=== PATIENT | female | born 1940 | race Caucasian/White ===

== ENCOUNTER 2019-08-04 12:30 | Outpatient (RCR) | payer MEDICARE, OTHER, SELFPAY ==
--- NOTE | 2019-06-25 11:40 | PTOPEVAL ---
INITIAL PHYSICAL THERAPY EVALUATION and PLAN OF CARE Thank you for referring Laurel to [facility]. Please review, sign, date and return this plan of care MAXINE. She will be seen in PT 2x/wk x 6 wks. I agree with and certify that the following plan of care is medically necessary. 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 Hx Other Cardiac Disorders Yes: SEES DR JESUS SCHMID CARDIO EVERY 6 MONTHS Respiratory History Hx Chronic Obstructive Pulmonary Disease Yes (COPD) Hx Other Respiratory Disorders Yes: SEES DR BONNER- CLEARANCE ON CHART Gastrointestinal History Hx Appendectomy Yes Hx Esophageal Disorders Yes Hx Gastroesophageal Reflux Disease Yes Genitourinary History Hx Genitourinary Disorders No Significant History Musculoskeletal History Hx Arthritis Yes: GENERALIZED Hx Joint Replacement Yes: L TKA 06/02/19 Hx Other Musculoskeletal Disorders Yes: DJD LT KNEE Hematological History Hx Other Hematological Disorders Yes: HX OF IRON DEFICIENCY Endocrine History Hx Endocrine Disorders No Significant History HEENT History Hx Cataracts Yes: NIGEL REMOVED Hx Tonsillectomy Yes Integumentary History Hx Other Skin Disorders Yes: SKIN CA REMOVED FROM FACE Reproductive History Hx Tubal Ligation Yes Hx Other Reproductive Disorders Yes: LT BREAST CYST REMOVED Psychosocial History Hx Anxiety Yes Hx Depression Yes Other History Hx Cancer Yes: SKIN CA /FACE Evaluation Information Problem Diagnosis s/p L TKA Onset 06/02/19 Subjective Information Was hospitalized x 2 nights, 3 Query Text:As Reported By Patient/ weeks home health PT was Family released to drive, silvestre out this past week Stiffness after prolonged sitting - needs to stand a little while before walking. Walking is a little
--- NOTE | 2019-08-04 16:36 | PTOPEVAL ---
PHYSICAL THERAPY DISCHARGE NOTE Thank you for referring Laurel to [facility]. She has met PT goals, ready for d/c from PT to HEP. I agree with Laurel's discharge from PT. Referring Physician Date Admitting Provider: Attending Provider: Andreas Harris MD Referring Provider: *PT Outpatient Evaluation Start: 06/25/19 10:01 Freq: Status: Active Protocol: Document 08/04/19 12:30 MARIE (Rec: 08/04/19 16:35 MARIE [id number]) Therapy Assessment Status Assessment Status Assessment Status Discharge Evaluation Information Problem Subjective Information Laurel states her knee Query Text:As Reported By Patient/ discomfort isn't bad, just Family knows it is there . Does have complaint of discomfort anterior/medical aspect of knee - tibial plateau region. She has returned to shopping, visiting people in complex, etc. Pain Assessment Timing of Pain Assessment Timing of Pain Assessment Assessment Pain Scale Pain Scale Used Numeric (1 - 10) Self Report Pain Assessment Left Knee(s) Reported Pain Level 2 Current Pain Intensity 2 Lowest Pain Intensity 1 Greatest Pain Intensity 3 Pain Score Pain Score 2: Self Report Lower Extremity Range of Motion Knee Range of Motion Left Knee Flexion Range of Motion - Active 130 Knee Extension Range of Motion - Active 0 Query Text: Lower Extremity Muscle Strength Testing Hip Strength Left Hip Flexion Strength 4 Good Hip Extension Strength 4 Good Hip Abduction Strength 3+ Fair + Hip Medial Rotation Strength 4 Good Hip Lateral Rotation Strength 4 Good Knee Strength Left Knee Flexion Strength 5 Normal Knee Extension Strength 5 Normal Palpation Assessment Palpation Palpation good patella and incisional mobility - no c/o's with mobility testing Edema Assessment Location Left Knee(s) Edema Degree None Gait Assessment Gait Pattern Assessment Other Gait Observations without assistive device, mild increase in genu valgus bilat , heel/toe progress, arm swing present, decrease lateral trunk motion Stair Climbing Assessment Stair Climbing Assessment Stair Climbing Assistive Devices Railings Weight Bearing Status - Left Full Weight Bearing Status - Right Full Maintains Weight Bearing Status Yes Number of
== END 2019-08-17 09:23 | disposition home or self-care (01) ==
LOC: ANHHIPT 12:30
PROVIDERS: Visit Provider Orthopaedic Surgery
DX: Z47.1 Aftercare following joint replacement surgery (principal); Z96.652 Presence of left artificial knee joint
CPT/HCPCS: 97110; 97162